=== PATIENT | male | born 1945 | race Caucasian/White ===

== ENCOUNTER 2020-11-14 10:01 | Day surgery (SDC) | payer MEDICARE, OTHER ==
[2020-11-14] VITALS (10 sets, daily range): BP systolic 141–158; BP diastolic 82–95
[~2020-11-14] VITALS: Ht 190.5 cm; Wt 118.1 kg
[~2020-11-14 10:01] MED LIST: ASPI-1265 PO; DIGO125T PO; GABA-341 PO; NITR0.4T51 SL; NORCO10T PO; ZES10T PO
[2020-11-14] MEDS ORDERED: normal saline 1,000 ML IV SCH (10:25)
[2020-11-14] MEDS ORDERED: CLINDAMYCIN/D5W 900mg/50ml 50 ML IV ONE (10:25)
[2020-11-14] MEDS ORDERED: diphenhydrAMINE 25mg capsule PO PRN (10:25)
[2020-11-14] MEDS ORDERED: vancomycin 1,500 MG in NS 300ml IV soln IV ONE (10:26)
[2020-11-14 10:53] LABS: BASOPHILS # (AUTO) 0.1 X10'3 (0-0.2); BASOPHILS % (AUTO) 1.1 % (0-1); EOSINOPHILS # (AUTO) 0.2 X10'3 (0-0.9); EOSINOPHILS % (AUTO) 2.7 % (0-6); HEMATOCRIT 44.2 % (42.0-52.0); HEMOGLOBIN 14.8 g/dl (14.0-17.9); LYMPHOCYTES # (AUTO) 2.2 X10'3 (1.1-4.8); LYMPHOCYTES % (AUTO) 30.6 % (21-51); MEAN CORPUSCULAR HEMOGLOBIN 29.1 PG (27.0-31.0); MEAN CORPUSCULAR HGB CONC 33.5 g/dL (33.0-36.5); MEAN CORPUSCULAR VOLUME 86.7 FL (78-98); MONOCYTES # (AUTO) 0.7 X10'3 (0-0.9); MONOCYTES % (AUTO) 9.7 % (2-12); NEUTROPHILS # (AUTO) 3.9 X10'3 (1.8-7.7); NEUTROPHILS % (AUTO) 55.9 % (42-75); PLATELET COUNT 224 X10'3 (140-440); RED CELL DISTRIBUTION WIDTH 14.9 % (11.5-14.5); WHITE BLOOD COUNT 7.1 X10'3 (4.5-11.0)
[2020-11-14] MEDS ORDERED: POTA10TA36 PO (11:01)
[2020-11-14] MEDS ORDERED: LISI40TA13 PO (11:01)
[2020-11-14] MEDS ORDERED: FURO40TA4 PO (11:01)
[2020-11-14] MEDS ORDERED: GABA300T25 PO (11:01)
[2020-11-14] MEDS ORDERED: OMEP-50 PO (11:01)
[2020-11-14] MEDS ORDERED: OXYC1TAB17 PO (11:01)
[2020-11-14] MEDS ORDERED: RED600CA2 PO (11:01)
[2020-11-14 11:08] LABS: ALBUMIN 3.6 G/DL (3.4-5.0); ANION GAP 11 (8-16); BLOOD UREA NITROGEN 26 MG/DL (7-18); BUN/CREATININE RATIO 13.5 (5.4-32.0); CALCIUM 8.8 MG/DL (8.5-10.1); CHLORIDE 105 MMOL/L (99-107); CREATININE 1.92 MG/DL (0.60-1.10); GLUCOSE 114 MG/DL (70-104); MAGNESIUM 2.2 MG/DL (1.5-2.4); POTASSIUM 4.2 MMOL/L (3.5-5.1); SODIUM 143 MMOL/L (135-145); TOTAL CARBON DIOXIDE 27.5 MMOL/L (24-32); eGFR 34 ML/MIN
[2020-11-14] MEDS ORDERED: vancomycin 1,000mg inj ONE (11:30)
[2020-11-14] MEDS ORDERED: fentaNYL/PF 50MCG/1 ML 2ML syringe ONE (11:30)
[2020-11-14] MEDS ORDERED: midazolam 1 mg/ML 2ml injection ONE (11:30)
[2020-11-14] MEDS ORDERED: iohexol 350MG/ML 100ml bottle IV ONE ×2 (11:31→13:02)
[2020-11-14] MEDS ORDERED: LIDOCAINE 2% w/EPI 1:100:000 30mL injection MDV**cath lab 1 only ONE (11:31)
[2020-11-14] MEDS ORDERED: heparin 1,000unit/ml 10ml vial 10 ML ONE (11:31)
[2020-11-14] MEDS ORDERED: LIDOcaine 1% (10mg/ml)w/preservative injection 20ml MDV ONE (11:31)
[2020-11-14] MEDS ORDERED: iohexol 350 MG/ML 50ML vial IV ONE (11:31)
[2020-11-14] MEDS ORDERED: hydrocortisone sod succ/PF 100mg/2ml inj. ONE (12:42)
== END 2020-11-14 17:10 | disposition home or self-care (01) ==
LOC: SSTAY O 10:01
PROVIDERS: ATTEND Internal Medicine Cardiovascular Disease
DX: R94.39 Abnormal result of other cardiovascular function study (principal); I25.118 Atherosclerotic heart disease of native coronary artery with other forms of angina pectoris; I44.1 Atrioventricular block, second degree; I27.81 Cor pulmonale (chronic); J44.9 Chronic obstructive pulmonary disease, unspecified; I87.2 Venous insufficiency (chronic) (peripheral); I25.2 Old myocardial infarction; I35.0 Nonrheumatic aortic (valve) stenosis; G47.33 Obstructive sleep apnea (adult) (pediatric); E78.5 Hyperlipidemia, unspecified; K21.9 Gastro-esophageal reflux disease without esophagitis; G62.9 Polyneuropathy, unspecified; Z79.899 Other long term (current) drug therapy; Z95.1 Presence of aortocoronary bypass graft; Z90.49 Acquired absence of other specified parts of digestive tract; Z98.890 Other specified postprocedural states; Z87.891 Personal history of nicotine dependence; Z88.0 Allergy status to penicillin; Z88.8 Allergy status to other drugs, medicaments and biological substances
CPT/HCPCS: 36415; 80048; 83735; 85025; 85610; 93005; 93461; 99152; 99153; C1760; C1769; C1894; J1644; J1720; J2001; J2250; J3010; J3370; J7030; Q0163; Q9967; A4620; A6258; C1751

== ENCOUNTER 2023-04-08 06:40 | Day surgery (SDC) | payer MEDICARE, OTHER ==
[2023-04-08] VITALS (9 sets, daily range): BP systolic 122–171; BP diastolic 76–94; PULSE 50–87; RESP 10–20; TEMP 97.8; O2SAT 92–100
[~2023-04-08] VITALS: Ht 188 cm; Wt 108.7 kg
[~2023-04-08 06:40] MED LIST changes: -DIGO125T PO; +FURO40TA4 PO; -GABA-341 PO; +GABA300T25 PO; +LISI40TA13 PO; -NITR0.4T51 SL; +OMEP20CA16 PO; +OXYC1TAB17 PO; +POTA-206 PO; +RED600CA2 PO; -ZES10T PO
[2023-04-08] MEDS ORDERED: fentaNYL/PF 50MCG/1 ML 2ML syringe ONE ×2 (06:45→08:59)
[2023-04-08] MEDS ORDERED: LIDOCAINE 2%/EPI 1:100,000 inj. Multi-dose 20 ML VIAL ONE (06:45)
[2023-04-08] MEDS ORDERED: iohexol 350 MG/ML 50ML vial IV ONE (06:45)
[2023-04-08] MEDS ORDERED: midazolam 1 mg/ML 2ml injection ONE ×3 (06:45→09:57)
[2023-04-08] MEDS ORDERED: vancomycin 1,000mg inj ONE (06:45)
[2023-04-08] MEDS ORDERED: VANCOMYCIN 1,500MG in normal saline IV soln 300 ML IV ONE (07:00)
[2023-04-08] MEDS ORDERED: normal saline 1000ml 1,000 ML IV SCH (07:00)
[2023-04-08] MEDS ORDERED: cefazolin 2gm/D5W 100mL 100 ML IV ONE (07:00)
[2023-04-08] MEDS ORDERED: APIX2.5T PO (07:07)
[2023-04-08] MEDS ORDERED: ASPI-611 PO (07:08)
[2023-04-08] MEDS ORDERED: ALB0.5UD IH (07:10)
[2023-04-08 07:31] LABS: BASOPHILS # (AUTO) 0.1 X10'3 (0-0.2); BASOPHILS % (AUTO) 0.7 % (0-1); EOSINOPHILS # (AUTO) 0.1 X10'3 (0-0.9); EOSINOPHILS % (AUTO) 1.3 % (0-6); HEMATOCRIT 44.5 % (42.0-52.0); LYMPHOCYTES % (AUTO) 26.5 % (21-51); MEAN CORPUSCULAR HEMOGLOBIN 29.8 PG (27.0-31.0); MEAN CORPUSCULAR HGB CONC 33.6 g/dL (33.0-36.5); MEAN CORPUSCULAR VOLUME 88.7 FL (78-98); MEAN PLATELET VOLUME 6.9 FL (7.4-10.4); MONOCYTES # (AUTO) 0.8 X10'3 (0-0.9); NEUTROPHILS # (AUTO) 4.5 X10'3 (1.8-7.7); NEUTROPHILS % (AUTO) 60.5 % (42-75); PLATELET COUNT 231 X10'3 (140-440); RED BLOOD COUNT 5.01 X10'6 (4.70-6.10); RED CELL DISTRIBUTION WIDTH 15.1 % (11.5-14.5); WHITE BLOOD COUNT 7.4 X10'3 (4.5-11.0)
[2023-04-08 07:41] LABS: PROTHROMBIN TIME 10.8 SECONDS (9.0-12.0)
[2023-04-08 07:54] LABS: ALBUMIN 3.5 G/DL (3.4-5.0); ANION GAP 11 (8-16); BLOOD UREA NITROGEN 28 MG/DL (7-18); BUN/CREATININE RATIO 13.4 (10.0-20.0); CALCIUM 9.3 MG/DL (8.5-10.1); CHLORIDE 102 MMOL/L (99-107); CREATININE 2.09 MG/DL (0.60-1.10); GLUCOSE 118 MG/DL (70-104); MAGNESIUM 1.9 MG/DL (1.5-2.4); POTASSIUM 3.5 MMOL/L (3.5-5.1); SODIUM 138 MMOL/L (135-145); TOTAL CARBON DIOXIDE 25.1 MMOL/L (24-32); eCRCL 35 ML/MIN; eGFR 31 ML/MIN
[2023-04-08] MEDS ORDERED: clindamycin 600mg/D5W 50ml 0 ML IV ONE (09:35)
[2023-04-08] MEDS ORDERED: ceFAZolin 1000mg inj ONE (09:49)
[2023-04-08] MEDS ORDERED: HYDROcodone/acetaminophen 10/325mg tab PO PRN (11:10)
[2023-04-08] MEDS ORDERED: HYDROcodone/acetaminophen 5mg/325mg tablet PO PRN (11:10)
[2023-04-08] MEDS ORDERED: flecainide 50mg tablet PO SCH (11:10)
== END 2023-04-08 13:05 | disposition home or self-care (01) ==
LOC: SSTAY O 06:40
PROVIDERS: ATTEND Internal Medicine Cardiovascular Disease
DX: I49.5 Sick sinus syndrome (principal); I10 Essential (primary) hypertension; I25.118 Atherosclerotic heart disease of native coronary artery with other forms of angina pectoris; E78.5 Hyperlipidemia, unspecified; J44.9 Chronic obstructive pulmonary disease, unspecified; G47.30 Sleep apnea, unspecified; N19 Unspecified kidney failure; Z79.1 Long term (current) use of non-steroidal anti-inflammatories (NSAID); Z79.891 Long term (current) use of opiate analgesic; Z79.899 Other long term (current) drug therapy; Z95.1 Presence of aortocoronary bypass graft
CPT/HCPCS: 33208; 36415; 80048; 83735; 85025; 85610; 93005; 99152; 99153; C1785; C1898; J0690; J2250; J3010; J3370; J7030; J7040; Q9967; 92960; A4565; A6258; J3490